=== PATIENT | female | born 1965 | race Caucasian/White ===

== ENCOUNTER 2017-11-04 17:13 | Emergency (ER) | payer OTHER ==
[2017-11-04] MEDS: ASPIRIN 325 MG TAB PO (18:47)
[2017-11-04] MEDS: LIDOCAINE/MYLANTA 40 ML BTL PO (18:48)
[2017-11-04 19:01] LABS: ADD MAN DIFF? NO
[2017-11-04 19:06] LABS: WHITE BLOOD COUNT 9.2 10^3/ul (4.8-10.8)
[2017-11-04 19:06] LABS: BASOPHIL # 0.1 10^3/ul (0.0-0.1); BASOPHILS % 0.7 % (0.0-2.0); EOSINOPHILS # 0.3 10^3/ul (0.0-0.5); HEMATOCRIT 49.3 % (37.0-47.0); HEMOGLOBIN 16.3 g/dl (12.0-16.0); LYMPHOCYTES # 2.8 10^3/ul (0.8-2.9); LYMPHOCYTES % 30.8 % (15.0-51.0); MEAN CORPUSCULAR HEMOGLOBIN 26.7 pg (29.0-33.0); MEAN CORPUSCULAR HGB CONC 33.1 g/dl (32.0-37.0); MEAN CORPUSCULAR VOLUME 80.7 fl (82.0-101.0); MEAN PLATELET VOLUME 12.9 fl (7.4-10.4); MONOCYTE # 0.6 10^3/ul (0.3-0.9); MONOCYTES % 6.6 % (0.0-11.0); NEUTROPHIL # 5.4 10^3/ul (1.6-7.5); NEUTROPHILS % 58.7 % (39.0-77.0); PLATELET COUNT 236 10^3/UL (140-415); RED BLOOD COUNT 6.11 10^6/ul (4.20-5.40)
[2017-11-04 19:23] LABS: ANION GAP 18 (8-16); BLOOD UREA NITROGEN 19 mg/dl (7-20); CALCIUM 9.9 mg/dl (8.4-10.2); CARBON DIOXIDE 27 mmol/L (21-31); CHLORIDE 94 mmol/L (97-110); CREATININE 0.87 mg/dl (0.44-1.00); GLUCOSE 392 mg/dl (70-220); POTASSIUM 4.2 mmol/L (3.5-5.1); SODIUM 135 mmol/L (135-144)
[2017-11-04 19:35] LABS: B-TYPE NATRIURETIC PEPTIDE 21 PG/ML (0-125)
[2017-11-04 19:41] LABS: TROPONIN-I < 0.012 ng/ml (0.00-0.12)
[2017-11-04] MEDS: SOD CHLORIDE 0.9% 1,000 ML IV ×2 (20:21)
[2017-11-04] MEDS: KETOROLAC 30 MG INJ IV (20:42)
[2017-11-04] MEDS: LABETALOL HCL 20MG INJ IV (21:33)
== END 2017-11-04 23:09 | disposition home or self-care (01) ==
LOC: E/R 17:13
DX: E11.65 Type 2 diabetes mellitus with hyperglycemia (principal); E86.0 Dehydration; M62.830 Muscle spasm of back; I10 Essential (primary) hypertension; E11.9 Type 2 diabetes mellitus without complications; Z79.84 Long term (current) use of oral hypoglycemic drugs
CPT/HCPCS: 36415; 71045; 80048; 82962; 83880; 84484; 85025; 93005; 96374; 99285-25

== ENCOUNTER 2017-12-02 12:28 | Emergency (ER) | payer OTHER ==
[2017-12-02 13:47] LABS: URINE PH (Dip) POC 5.5 (5.0-8.5)
[2017-12-02 13:47] LABS: URINE BLOOD (Dip) POC Trace-lysed (NEGATIVE); URINE KETONES (Dip) POC Negative (NEGATIVE); URINE LEUKOCYTE EST (Dip) POC 1+ (NEGATIVE); URINE NITRITE (Dip) POC Negative (NEGATIVE); URINE TOTAL PROTEIN POC Negative (NEGATIVE)
== END 2017-12-02 14:36 | disposition home or self-care (01) ==
LOC: FTE 12:28
DX: N39.0 Urinary tract infection, site not specified (principal); I10 Essential (primary) hypertension; E11.9 Type 2 diabetes mellitus without complications; Z79.84 Long term (current) use of oral hypoglycemic drugs
CPT/HCPCS: 81003; 87086; 99283

== ENCOUNTER 2018-05-03 23:13 | Emergency (ER) | payer OTHER ==
[2018-05-04 00:44] LABS: ADD MAN DIFF? NO; BASOPHIL # 0.1 10^3/ul (0.0-0.1); BASOPHILS % 0.6 % (0.0-2.0); EOSINOPHILS # 0.1 10^3/ul (0.0-0.5); EOSINOPHILS % 1.3 % (0.0-7.0); HEMATOCRIT 46.1 % (37.0-47.0); HEMOGLOBIN 15.9 g/dl (12.0-16.0); LYMPHOCYTES # 1.5 10^3/ul (0.8-2.9); LYMPHOCYTES % 18.6 % (15.0-51.0); MEAN CORPUSCULAR HEMOGLOBIN 27.6 pg (29.0-33.0); MEAN CORPUSCULAR HGB CONC 34.5 g/dl (32.0-37.0); MEAN CORPUSCULAR VOLUME 79.9 fl (82.0-101.0); MONOCYTE # 0.3 10^3/ul (0.3-0.9); MONOCYTES % 3.5 % (0.0-11.0); NEUTROPHIL # 6.2 10^3/ul (1.6-7.5); NEUTROPHILS % 75.6 % (39.0-77.0); PLATELET COUNT 184 10^3/UL (140-415); RED BLOOD COUNT 5.77 10^6/ul (4.20-5.40)
[2018-05-04 00:44] LABS: WHITE BLOOD COUNT 8.2 10^3/ul (4.8-10.8)
[2018-05-04] MEDS: SOD CHLORIDE 0.9% 1,000 ML IV (00:44)
[2018-05-04] MEDS: morphine 4 MG/ML VIAL IV (00:44)
[2018-05-04 00:56] LABS: URINE PH (Dip) POC 5.5 (5.0-8.5)
[2018-05-04 00:56] LABS: URINE BLOOD (Dip) POC Negative (NEGATIVE); URINE KETONES (Dip) POC 3+ (NEGATIVE); URINE LEUKOCYTE EST (Dip) POC Negative (NEGATIVE); URINE NITRITE (Dip) POC Negative (NEGATIVE); URINE TOTAL PROTEIN POC Negative (NEGATIVE)
[2018-05-04] MEDS: ONDANSETRON 4 MG INJ IV (01:04)
[2018-05-04 01:13] LABS: ALANINE AMINOTRANSFERASE 33 IU/L (13-69); ALBUMIN 4.5 g/dl (3.3-4.9); ALBUMIN/GLOBULIN RATIO 1.32; ALKALINE PHOSPHATASE 145 IU/L (42-121); ANION GAP 16 (8-16); ASPARTATE AMINO TRANSFERASE 25 IU/L (15-46); BILIRUBIN,INDIRECT 0.3 mg/dl (0-1.1); BILIRUBIN,TOTAL 0.3 mg/dl (0.2-1.3); BLOOD UREA NITROGEN 13 mg/dl (7-20); CALCIUM 9.8 mg/dl (8.4-10.2); CARBON DIOXIDE 27 mmol/L (21-31); CHLORIDE 97 mmol/L (97-110); CREATININE 0.56 mg/dl (0.44-1.00); GLUCOSE 346 mg/dl (70-220); LIPASE 109 U/L (23-300); POTASSIUM 4.5 mmol/L (3.5-5.1); SODIUM 135 mmol/L (135-144); TOTAL PROTEIN 7.9 g/dl (6.1-8.1)
[2018-05-04] MEDS ORDERED: CIPROFLOXACIN 500 MG TAB PO (02:00)
[2018-05-04] MEDS ORDERED: metroNIDAZOLE 500 MG TAB PO (02:00)
[2018-05-04] MEDS: ONDANSETRON (ODT) 4 MG TAB ODT (02:49)
== END 2018-05-04 02:50 | disposition home or self-care (01) ==
LOC: E/R 23:13
DX: B34.9 Viral infection, unspecified (principal); E11.65 Type 2 diabetes mellitus with hyperglycemia; I10 Essential (primary) hypertension; J45.909 Unspecified asthma, uncomplicated; Z79.84 Long term (current) use of oral hypoglycemic drugs
CPT/HCPCS: 36415; 80053; 81003; 81025; 82962; 83690; 85025; 96374; 96375; 99284-25